=== PATIENT | female | born 1955 | race African-American/Black ===

== ENCOUNTER 2019-07-18 02:28 | Inpatient (IN) | payer SELFPAY ==
[~2019-07-18] VITALS: Ht 172.7 cm; Wt 53.5 kg
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
[2019-07-18 02:56] VITALS: BP 166/31
[2019-07-18] MEDS ORDERED: Enalaprilat 2.5mg/2ml Inj IV ONE (03:15)
[2019-07-18 03:17] LABS: BASOPHILS % (AUTO) 0.8 % (0.0-2.0); EOSINOPHILS % (AUTO) 3.5 % (0.0-3.0); HEMATOCRIT 40.5 % (37.0-47.0); HEMOGLOBIN 13.5 G/DL (12.0-16.0); LYMPHOCYTES % (AUTO) 33.1 % (20.0-45.0); MEAN CORPUSCULAR VOLUME 87 FL (80-99); MONOCYTES % (AUTO) 9.2 % (1.0-10.0); NEUTROPHILS % (AUTO) 53.3 % (45.0-75.0); PLATELET COUNT 386 K/UL (150-450); RED BLOOD COUNT 4.67 M/UL (4.20-5.40); RED CELL DISTRIBUTION WIDTH 12.5 % (11.6-14.8)
[2019-07-18 03:21] LABS: APPEARANCE,URINE SLIGHTLY CLOUDY; BILIRUBIN, URINE NEGATIVE (NEGATIVE); COLOR,URINE PALE YELLOW; GLUCOSE, URINE (UA) NEGATIVE (NEGATIVE); KETONES,URINE NEGATIVE (NEGATIVE); LEUKOCYTE ESTERASE ,URINE 3+ (NEGATIVE); NITRITE,URINE NEGATIVE (NEGATIVE); PH,URINE 8 (4.5-8.0); PROTEIN,URINE NEGATIVE (NEGATIVE); UROBILINOGEN,URINE NORMAL MG/DL (0.0-1.0)
[2019-07-18 03:28] LABS: ANION GAP 9 mmol/L (5-15); BLOOD UREA NITROGEN 28 mg/dL (7-18); CALCIUM 8.7 MG/DL (8.5-10.1); CARBON DIOXIDE 29 MMOL/L (21-32); CHLORIDE 106 MMOL/L (98-107); SODIUM 144 MMOL/L (136-145)
[2019-07-18 03:40] LABS: ALANINE AMINOTRANSFERASE 23 U/L (12-78); ALBUMIN 3.7 G/DL (3.4-5.0); ALKALINE PHOSPHATASE 80 U/L (46-116); ASPARTATE AMINO TRANSFERASE 18 U/L (15-37); BILIRUBIN,TOTAL 0.2 MG/DL (0.2-1.0)
[2019-07-18] MEDS ORDERED: cefTRIAXone 1 GM in NS 55 ML IVPB ONE (04:00)
[2019-07-18] MEDS ORDERED: Morphine Sulfate 2mg/ml Inj(IV/IM USE ONLY) IVP PRN (04:15)
[2019-07-18 04:18] VITALS: BP 155/75
[2019-07-18] MEDS ORDERED: Enalaprilat 2.5mg/2ml Inj IV PRN (07:00)
[2019-07-18] MEDS ORDERED: Miralax 17gm pkt ORAL PRN (07:00)
[2019-07-18] MEDS ORDERED: Nitroglycerin Subl 0.4mg tab SL PRN (07:00)
[2019-07-18] MEDS ORDERED: Albuterol/Ipratropium 3ml neb HHN PRN (07:00)
[2019-07-18] MEDS ORDERED: dilTIAZem HCl 25mg/5ml Inj IV PRN (07:00)
[2019-07-18] MEDS: Aspirin Baby 81mg ORAL SCH (08:15)
[2019-07-18] MEDS: Heparin 5000 units/ml inj SUBQ SCH ×2 (08:15→21:00)
[2019-07-18] MEDS: Morphine Sulfate 2mg/ml Inj(IV/IM USE ONLY) IVP PRN ×4 (08:16→18:08)
--- NOTE | 2019-07-18 10:12 | Diagnostic Imaging Report ---
Indication: Shortness of breath Technique: One view of the chest Comparison: none Findings: Metallic device, nature uncertain, projects over the aortic root. The lungs and pleural spaces are clear. The heart size is upper limits normal. Impression: No acute process
[2019-07-18 12:00] VITALS: BP 142/88
--- NOTE | 2019-07-18 12:32 | Consultation ---
History of Present Illness General Date patient seen: Jul 18, 2019 Chief Complaint: Chest Pain Present Illness HPI 63 year old female with hx Lupus presented to ER with CC of increased chest discomfort. Patient had been given nitroglycerin in the field without significant change in chest discomfort. She had reported increased headache. she has had repair of atrial septal defect as well as heart attack in the past. She reports having several strokes related to lupus. Allergies: Coded Allergies: LATEX (Verified Allergy, Unknown, 07/18/19) Patient History Healthcare decision maker Resuscitation status Full Code Advanced Directive on File Past Medical/Surgical History Past Medical/Surgical History: (1) Lupus Review of Systems All Other Systems: negative except mentioned in HPI Physical Exam General Appearance: WD/WN Lines, tubes and drains: peripheral HEENT: normocephalic, atraumatic Neck: non-tender, normal alignment Respiratory/Chest: chest wall non-tender, lungs clear Breasts: no masses Cardiovascular/Chest: normal rate Abdomen: normal bowel sounds Genitourinary/Rectal: normal genital exam Extremities: normal range of motion Skin Exam: normal pigmentation Last 24 Hour Vital Signs Date Time Temp Pulse Resp B/P (MAP) Pulse Ox O2 Delivery O2 Flow Rate FiO2 07/18/19 11:40 72 07/18/19 09:03 Room Air 07/18/19 09:00 Room Air 07/18/19 08:46 98.2 07/18/19 07:45 73 07/18/19 06:04 98.2 75 19 155/75 100 Room Air 07/18/19 04:18 75 19 155/75 100 Room Air 07/18/19 02:56 98.2 78 18 166/31 99 Room Air 07/18/19 02:56 78 18 Room Air 07/18/19 02:26 98.2 78 18 166/31 (76) 99 Room Air Intake and Output 07/17/19 07/18/19 19:00 07:00 Intake Total 0 ml Balance 0 ml Intake Oral 0 ml Laboratory Tests Test 07/18/19 03:05 07/18/19 11:00 White Blood Count 6.0 K/UL (4.8-10.8) Red Blood Count 4.67 M/UL (4.20-5.40) Hemoglobin 13.5 G/DL (12.0-16.0) Hematocrit 40.5 % (37.0-47.0) Mean Corpuscular Volume 87 FL (80-99) Mean Corpuscular Hemoglobin 28.9 PG (27.0-31.0) Mean Corpuscular Hemoglobin Concent 33.3 G/DL (32.0-36.0) Red Cell Distribution Width 12.5 % (11.6-14.8) Platelet Count 386 K/UL (150-450) Mean Platelet Volume 5.5 FL (6.5-10.1) L Neutrophils (%) (Auto) 53.3 % (45.0-75.0) Lymphocytes (%) (Auto) 33.1 % (20.0-45.0) Monocytes (%) (Auto) 9.2 % (1.0-10.0) Eosinophils (%) (Auto) 3.5 % (0.0-3.0) H Basophils (%) (Auto) 0.8 % (0.0-2.0) Urine Color Pale yellow Urine Appearance Slightly cloudy Urine pH 8 (4.5-8.0) Urine Specific [place] 1.015 (1.005-1.035) Urine Protein Negative (NEGATIVE) Urine Glucose (UA) Negative (NEGATIVE) Urine Ketones Negative (NEGATIVE) Urine Blood 1+ (NEGATIVE) H Urine Nitrite Negative (NEGATIVE) Urine Bilirubin Negative (NEGATIVE) Urine Urobilinogen Normal MG/DL (0.0-1.0) Urine Leukocyte Esterase 3+ (NEGATIVE) H Urine RBC 0-2 /HPF (0 - 2) Urine WBC 40-60 /HPF (0 - 2) H Urine Squamous Epithelial Cells Few /LPF (NONE/OCC) Urine Amorphous Sediment Many /LPF (NONE) H Urine Bacteria Many /HPF (NONE) H Sodium Level 144 MMOL/L (136-145) Potassium Level 4.0 MMOL/L (3.5-5.1) Chloride Level 106 MMOL/L (98-107) Carbon Dioxide Level 29 MMOL/L (21-32) Anion Gap 9 mmol/L (5-15) Blood Urea Nitrogen 28 mg/dL (7-18) H Creatinine 1.0 MG/DL (0.55-1.30) Estimat Glomerular Filtration Rate > 60 mL/min (>60) Glucose Level 97 MG/DL (74-106) Calcium Level 8.7 MG/DL (8.5-10.1) Total Bilirubin 0.2 MG/DL (0.2-1.0) Aspartate Amino Transf (AST/SGOT) 18 U/L (15-37) Alanine Aminotransferase (ALT/SGPT) 23 U/L (12-78) Alkaline Phosphatase 80 U/L (46-116) Troponin I 0.000 ng/mL (0.000-0.056) 0.000 ng/mL (0.000-0.056) Total Protein 7.5 G/DL (6.4-8.2) Albumin 3.7 G/DL (3.4-5.0) Globulin 3.8 g/dL Albumin/Globulin Ratio 1.0 (1.0-2.7) Lipase 387 U/L (73-393) Thyroid Stimulating Hormone (TSH) 0.834 uiU/mL (0.358-3.740) Height (Feet): 5 Height (Inches): 8.00 Weight (Pounds): 118 Medications Current Medications Medications (Trade) Dose Ordered Sig/Macario Route PRN Reason Start Time Stop Time Status Last Admin Dose Admin Acetaminophen (Tylenol) 650 mg Q4H PRN ORAL FEVER 07/18/19 07:00 08/17/19 06:59 Albuterol/ Ipratropium (Albuterol/ Ipratropium) 3 ml Q4H PRN HHN Shortness of Breath 07/18/19 07:00 07/23/19 06:59 Aspirin (ASA) 162 mg DAILY ORAL 07/18/19 09:00 08/17/19 08:59 07/18/19 08:15 Ceftriaxone Sodium 1 gm/ Dextrose 55 ml @ 110 mls/hr Q24H IVPB 07/19/19 04:00 07/26/19 03:59 Diltiazem HCl (Cardizem) 10 mg Q1H PRN IV heart rate more than 120, 07/18/19 07:00 08/17/19 06:59 Enalaprilat (Vasotec) 2.5 mg Q6H PRN IV sbp more than 160 07/18/19 07:00 08/17/19 06:59 Heparin Sodium (Porcine) (Heparin 5000 units/ml) 5,000 units EVERY 12 HOURS SUBQ 07/18/19 09:00 08/17/19 08:59 Morphine Sulfate (Morphine Sulfate) 2 mg Q4H PRN IVP severe Pain (Pain Scale 7-10) 07/18/19 07:00 07/25/19 06:59 07/18/19 08:16 Nitroglycerin (Ntg) 0.4 mg Q5M PRN SL Prn Chest Pain 07/18/19 07:00 08/17/19 06:59 Ondansetron HCl (Zofran) 4 mg Q6H PRN IVP Nausea & Vomiting 07/18/19 07:00 08/17/19 06:59 Polyethylene Glycol (Miralax) 17 gm DAILYPRN PRN ORAL Constipation 07/18/19 07:00 08/17/19 06:59 Temazepam (Restoril) 15 mg HSPRN PRN ORAL Insomnia 07/18/19 07:00 07/25/19 06:59 Assessment/Plan Problem List: (1) Chest pain ICD Codes: R07.9 - Chest pain, unspecified SNOMED: 02289204 (2) Urinary tract infection ICD Codes: N39.0 - Urinary tract infection, site not specified SNOMED: 29689596 (3) Lupus ICD Codes: M32.9 - Systemic lupus erythematosus, unspecified SNOMED: 403070634 Assessment/Plan: serial ekg, troponin echo IV abx cardiology to see EKG showing septal infarct, age undetermined Nathaly Cunningham MD Jul 18, 2019 12:32
--- NOTE | 2019-07-18 18:01 | History and Physical Report ---
DATE OF ADMISSION: 07/18/2019 APPROXIMATE TIME: 2 p.m. CONSULTANTS: 1. Nathaly Cunningham M.D. 2. Enrique Anderson M.D. CHIEF COMPLAINT: Chest pain and dizziness. BRIEF HISTORY: This is a 63-year-old female, who presents to [place] ER with above-mentioned diagnosis, chest pain, dull substernal, no radiation. The patient was little dizzy, but no loss of consciousness, came to [place], diagnosed with the above, admitted to telemetry for further care. Currently, calm, in bed. No complaint. Slight chest pain. Slight short of breath. No nausea, vomiting, or diarrhea. PAST MEDICAL HISTORY: Hypertension, lupus, [place] x4, asthma. PAST SURGICAL HISTORY: Unknown. ALLERGIES: Latex. MEDICATIONS: We will obtain list shortly. SOCIAL HISTORY: No smoking. No alcohol. No intravenous drug abuse. FAMILY HISTORY: Noncontributory. PHYSICAL EXAMINATION: GENERAL: Calm in bed, oriented x3, in no acute distress. VITAL SIGNS: Temperature 98 degrees, pulse 72, respirations 18, blood pressure 142/88. CARDIOVASCULAR: No murmur. LUNGS: Distant and clear. ABDOMEN: Bowel sounds positive. Nontender. Nondistended. EXTREMITIES: No cyanosis or edema. NEUROLOGIC: The patient moves all extremities, slightly weak. LABORATORY DATA: Labs at this time are pending. ASSESSMENT: 1. Chest pain. 2. Hypertension. 3. History of lupus. 4. MO. 5. Asthma. PLAN: 1. O2, pulmonary treatment. 2. Pain control. 3. Blood pressure control. 4. Dietary followup. 5. Cardiology followup. 6. We will continue to follow. 7. CBC, BMP in the morning. Víctor Regalado D.O. DR: HI JOB#: [id number] CC:
[2019-07-18 20:00] VITALS: BP 167/77
--- NOTE | 2019-07-18 20:06 | Cardiology Progress Note ---
Assessment/Plan Assessment/Plan [id number] doubt ischemic pain ekg neg trop neg she claims to have had 4 heart attack \ prelim echo neg i am unable ot access rizwan echo to reviwed stres echo in am prior to dc Objective Last 24 Hour Vital Signs Date Time Temp Pulse Resp B/P (MAP) Pulse Ox O2 Delivery O2 Flow Rate FiO2 07/18/19 18:38 98.2 07/18/19 12:00 98.2 72 18 142/88 (106) 97 07/18/19 11:40 72 07/18/19 09:03 Room Air 07/18/19 09:00 Room Air 07/18/19 07:45 73 07/18/19 06:04 98.2 75 19 155/75 100 Room Air 07/18/19 04:18 75 19 155/75 100 Room Air 07/18/19 02:56 98.2 78 18 166/31 99 Room Air 07/18/19 02:56 78 18 Room Air 07/18/19 02:26 98.2 78 18 166/31 (76) 99 Room Air Intake and Output 07/17/19 07/18/19 19:00 07:00 Intake Total 0 ml Balance 0 ml Intake Oral 0 ml Laboratory Tests Test 07/18/19 03:05 07/18/19 11:00 07/18/19 16:40 White Blood Count 6.0 K/UL (4.8-10.8) Red Blood Count 4.67 M/UL (4.20-5.40) Hemoglobin 13.5 G/DL (12.0-16.0) Hematocrit 40.5 % (37.0-47.0) Mean Corpuscular Volume 87 FL (80-99) Mean Corpuscular Hemoglobin 28.9 PG (27.0-31.0) Mean Corpuscular Hemoglobin Concent 33.3 G/DL (32.0-36.0) Red Cell Distribution Width 12.5 % (11.6-14.8) Platelet Count 386 K/UL (150-450) Mean Platelet Volume 5.5 FL (6.5-10.1) L Neutrophils (%) (Auto) 53.3 % (45.0-75.0) Lymphocytes (%) (Auto) 33.1 % (20.0-45.0) Monocytes (%) (Auto) 9.2 % (1.0-10.0) Eosinophils (%) (Auto) 3.5 % (0.0-3.0) H Basophils (%) (Auto) 0.8 % (0.0-2.0) Urine Color Pale yellow Urine Appearance Slightly cloudy Urine pH 8 (4.5-8.0) Urine Specific [place] 1.015 (1.005-1.035) Urine Protein Negative (NEGATIVE) Urine Glucose (UA) Negative (NEGATIVE) Urine Ketones Negative (NEGATIVE) Urine Blood 1+ (NEGATIVE) H Urine Nitrite Negative (NEGATIVE) Urine Bilirubin Negative (NEGATIVE) Urine Urobilinogen Normal MG/DL (0.0-1.0) Urine Leukocyte Esterase 3+ (NEGATIVE) H Urine RBC 0-2 /HPF (0 - 2) Urine WBC 40-60 /HPF (0 - 2) H Urine Squamous Epithelial Cells Few /LPF (NONE/OCC) Urine Amorphous Sediment Many /LPF (NONE) H Urine Bacteria Many /HPF (NONE) H Sodium Level 144 MMOL/L (136-145) Potassium Level 4.0 MMOL/L (3.5-5.1) Chloride Level 106 MMOL/L (98-107) Carbon Dioxide Level 29 MMOL/L (21-32) Anion Gap 9 mmol/L (5-15) Blood Urea Nitrogen 28 mg/dL (7-18) H Creatinine 1.0 MG/DL (0.55-1.30) Estimat Glomerular Filtration Rate > 60 mL/min (>60) Glucose Level 97 MG/DL (74-106) Calcium Level 8.7 MG/DL (8.5-10.1) Total Bilirubin 0.2 MG/DL (0.2-1.0) Aspartate Amino Transf (AST/SGOT) 18 U/L (15-37) Alanine Aminotransferase (ALT/SGPT) 23 U/L (12-78) Alkaline Phosphatase 80 U/L (46-116) Troponin I 0.000 ng/mL (0.000-0.056) 0.000 ng/mL (0.000-0.056) Total Protein 7.5 G/DL (6.4-8.2) Albumin 3.7 G/DL (3.4-5.0) Globulin 3.8 g/dL Albumin/Globulin Ratio 1.0 (1.0-2.7) Lipase 387 U/L (73-393) Thyroid Stimulating Hormone (TSH) 0.834 uiU/mL (0.358-3.740) Rheumatoid Factor Screen Pending Total Complement (CH50) Pending Enrique Anderson MD Jul 18, 2019 20:06
[2019-07-19] VITALS: BP 146/90
[2019-07-19] MEDS ORDERED: Sertraline 50mg tab ORAL SCH
[2019-07-19] MEDS ORDERED: Lisinopril 20mg tab ORAL SCH
[2019-07-19 04:00] VITALS: BP 144/81
[2019-07-19] MEDS ORDERED: cefTRIAXone 1gm/D5W 55ml IVPB SCH ×2 (04:00)
[2019-07-19] MEDS: Morphine Sulfate 2mg/ml Inj(IV/IM USE ONLY) IVP PRN (06:01)
--- NOTE | 2019-07-19 06:30 | Consultation ---
DATE OF CONSULTATION: 07/18/2019 CARDIOLOGY CONSULTATION CONSULTING PHYSICIAN: Enrique Anderson M.D. REFERRING PHYSICIAN: Víctor Regalado D.O. REASON FOR REFERRAL: Chest pain and shortness of breath. HISTORY OF PRESENT ILLNESS: This is a middle-aged female who has a history of shortness of breath for approximately 10 years as well as chest pain. She is in a facility that she had to get away from have been consulted and she has been having some shortness of breath and she is mentally distressed as she gets shortness of breath getting worse and chest pain getting worse. She has no PND. She uses two pillows. She does wake up at night because of shortness of breath and sits up breathing and goes back to bed. No dizziness or lightheadedness on standing. No heart pounding or palpitations. PAST MEDICAL HISTORY: She indicates she has had 4 TIAs and 4 heart attacks and Amplatzer ASD closure device that was implanted in [place]. She is prediabetic. She never had a cancer and no hepatitis or tuberculosis. She does have asthma. No ulcers. She has . No hepatitis or tuberculosis. She has end-stage kidney dysfunction. No HIV or AIDS. The patient has a history of lupus arthritis as well. SOCIAL HISTORY: She used to smoke, quit that in 1983. Denies any drugs. She used to drink some, not heavily. REVIEW OF SYSTEMS: GASTROINTESTINAL: She is positive for constipation. GENITOURINARY: Negative. PULMONARY: Negative. CONSTITUTIONAL: Negative. NEUROLOGIC: Numbness and tingling sensation in her feet. PHYSICAL EXAMINATION: GENERAL: Shows her to be a thin middle-aged female, in no respiratory distress. NECK: Supple. No jugular distention. LUNGS: Clear to auscultation and percussion. CARDIAC: S1 is normal. S2 is normal. Regular rate and rhythm. There is a systolic ejection murmur. No heaves or thrills noted. ABDOMEN: Soft and nontender. Positive bowel sounds. EXTREMITIES: There is no clubbing, cyanosis, or edema. NEUROLOGICAL: She is awake, alert, and responsive. LABORATORY AND DIAGNOSTIC DATA: White count of 6, hemoglobin 13.5, and platelet count of 386,000. Sodium is 144, potassium 4.0, chloride 103, bicarb 29, BUN of 28, creatinine 1.0, and glucose of 97. Cardiac enzymes, troponins are negative. Albumin of 3.7. TSH is 0.837. Lipase of 387. Urinalysis is 40 to 60 wbc's. Her chest x-ray shows basically a center medical specialist, nature unknown. Lungs and pleural spaces are clear. The heart size is in the upper limit of normal. No acute processes. Currently, echocardiogram shows ejection fraction 60% to 65%. No valvular dysfunction of any kind. IVC normal size. Telemetry sinus. EKG is normal sinus rhythm, normal QRS axis, and no ST or T-wave abnormalities. ASSESSMENT: 1. Atypical chest pain. No evidence of myonecrosis. 2. History of ASD or PFO closure device in. 3. History of chronic dyspnea. 4. Reported history of lupus. PLAN: Dr. Regalado, this patient was seen in cardiac consultation. The patient has no signs or symptoms of coronary syndrome nor any evidence of congestive heart failure on examination. Lungs appear to be relatively clear. She has had shortness of breath for a long time although she appears to indicate that her symptoms get worse in terms of mental stress. She has had an echocardiogram reported as mentioned above. Nothing about atrial enlargement. I am not able to pull down the studies to review myself. The electrocardiogram is unremarkable. That will be repeated. In light of lack of maybe a stress test to be performed tomorrow. Her shortness of breath seems to get worse with times of mental stress. She is usually very active walking around without any chest pain. Therefore, this pain is considered atypical and unlikely to be of a recurrent ischemic event. She indicates that she has been told she had four heart attacks, but appears not to have had any kind of procedure performed for those as I understand it. So the history of information provided is rather incomplete, and I doubt that this is ischemic in origin. I would perform a treadmill stress test in the morning and hopefully discharge her if that is negative. Enrique Anderson M.D. DR: AHMET JOB#: [id number] CC:
[2019-07-19 07:29] LABS: INR 0.9 (0.9-1.1)
[2019-07-19 07:46] LABS: BASOPHILS % (AUTO) 0.6 % (0.0-2.0); EOSINOPHILS % (AUTO) 4.4 % (0.0-3.0); HEMATOCRIT 40.1 % (37.0-47.0); HEMOGLOBIN 13.4 G/DL (12.0-16.0); LYMPHOCYTES % (AUTO) 49.4 % (20.0-45.0); MEAN CORPUSCULAR VOLUME 87 FL (80-99); MONOCYTES % (AUTO) 7.4 % (1.0-10.0); NEUTROPHILS % (AUTO) 38.3 % (45.0-75.0); PLATELET COUNT 388 K/UL (150-450); RED BLOOD COUNT 4.63 M/UL (4.20-5.40); RED CELL DISTRIBUTION WIDTH 12.8 % (11.6-14.8); WHITE BLOOD COUNT 5.4 K/UL (4.8-10.8)
[2019-07-19 08:00] VITALS: BP 160/73
[2019-07-19 08:04] LABS: PHOSPHORUS 4.7 MG/DL (2.5-4.9)
[2019-07-19 08:18] LABS: ALANINE AMINOTRANSFERASE 22 U/L (12-78); ALBUMIN 3.7 G/DL (3.4-5.0); ALKALINE PHOSPHATASE 74 U/L (46-116); ANION GAP 10 mmol/L (5-15); ASPARTATE AMINO TRANSFERASE 20 U/L (15-37); BILIRUBIN,TOTAL 0.2 MG/DL (0.2-1.0); BLOOD UREA NITROGEN 19 mg/dL (7-18); CALCIUM 8.7 MG/DL (8.5-10.1); CARBON DIOXIDE 26 MMOL/L (21-32); CHLORIDE 107 MMOL/L (98-107); CHOLESTEROL 242 MG/DL (< 200); CREATININE 0.8 MG/DL (0.55-1.30); HDL CHOLESTEROL 67 MG/DL (40-60); POTASSIUM 4.1 MMOL/L (3.5-5.1); SODIUM 143 MMOL/L (136-145); TRIGLYCERIDES 100 MG/DL (30-150)
--- NOTE | 2019-07-19 08:41 | General Progress Note ---
Assessment/Plan Problem List: (1) HTN (hypertension) ICD Codes: I10 - Essential (primary) hypertension SNOMED: 23309511 (2) Asthma ICD Codes: J45.909 - Unspecified asthma, uncomplicated SNOMED: 997811757 (3) Urinary tract infection ICD Codes: N39.0 - Urinary tract infection, site not specified SNOMED: 62311004 (4) Chest pain ICD Codes: R07.9 - Chest pain, unspecified SNOMED: 91486898 (5) Lupus ICD Codes: M32.9 - Systemic lupus erythematosus, unspecified SNOMED: 659175930 Status: stable, progressing Assessment/Plan: bp pain control cardio f/u cbc bmp am Subjective Constitutional: Reports: weakness Allergies: Coded Allergies: LATEX (Verified Allergy, Unknown, 07/18/19) All Systems: reviewed and negative except above Subjective calm in bed Objective Last 24 Hour Vital Signs Date Time Temp Pulse Resp B/P (MAP) Pulse Ox O2 Delivery O2 Flow Rate FiO2 07/19/19 04:00 96.6 69 19 144/81 (102) 100 07/19/19 04:00 75 07/19/19 00:00 72 07/19/19 00:00 97.7 67 18 146/90 (108) 99 07/18/19 21:00 Room Air 07/18/19 20:00 97.7 72 20 167/77 (107) 98 07/18/19 20:00 75 07/18/19 18:38 98.2 07/18/19 12:00 98.2 72 18 142/88 (106) 97 07/18/19 11:40 72 07/18/19 09:03 Room Air 07/18/19 09:00 Room Air Intake and Output 07/18/19 07/19/19 19:00 07:00 # Voids 2 3 Laboratory Tests 07/18/19 11:00: Troponin I 0.000 07/18/19 16:40: Rheumatoid Factor Screen <10.0, Total Complement (CH50) [Pending] 07/19/19 05:48: Troponin I 0.001, White Blood Count 5.4, Red Blood Count 4.63, Hemoglobin 13.4, Hematocrit 40.1, Mean Corpuscular Volume 87, Mean Corpuscular Hemoglobin 29.0, Mean Corpuscular Hemoglobin Concent 33.5, Red Cell Distribution Width 12.8, Platelet Count 388, Mean Platelet Volume 5.4L, Neutrophils (%) (Auto) 38.3L, Lymphocytes (%) (Auto) 49.4H, Monocytes (%) (Auto) 7.4, Eosinophils (%) (Auto) 4.4H, Basophils (%) (Auto) 0.6, Erythrocyte Sedimentation Rate [Pending], Prothrombin Time 10.0, Prothromb Time International Ratio 0.9, Activated Partial Thromboplast Time 25, Sodium Level 143, Potassium Level 4.1, Chloride Level 107, Carbon Dioxide Level 26, Anion Gap 10, Blood Urea Nitrogen 19H, Creatinine 0.8, Estimat Glomerular Filtration Rate > 60, Glucose Level 82, Calcium Level 8.7, Phosphorus Level 4.7, Magnesium Level 2.1, Total Bilirubin 0.2, Aspartate Amino Transf (AST/SGOT) 20, Alanine Aminotransferase (ALT/SGPT) 22, Alkaline Phosphatase 74, C-Reactive Protein, Quantitative < 0.4, Total Protein 7.5, Albumin 3.7, Globulin 3.8, Albumin/Globulin Ratio 1.0, Triglycerides Level 100, Cholesterol Level 242H, LDL Cholesterol 145H, HDL Cholesterol 67H, Cholesterol/HDL Ratio 3.6, Thyroid Stimulating Hormone (TSH) 0.663 Height (Feet): 5 Height (Inches): 8.00 Weight (Pounds): 118 General Appearance: lethargic EENT: normal ENT inspection Neck: normal alignment Cardiovascular: normal peripheral pulses, normal rate, regular rhythm Respiratory/Chest: chest wall non-tender, lungs clear, normal breath sounds Abdomen: normal bowel sounds, non tender, soft Extremities: normal inspection Edema: no edema noted Arm (L), no edema noted Arm (R), no edema noted Leg (L), no edema noted Leg (R), no edema noted Pedal (L), no edema noted Pedal (R), no edema noted Generalized Neurologic: motor weakness Skin: normal pigmentation, warm/dry Víctor Regalado DO Jul 19, 2019 08:41
[2019-07-19] MEDS: Heparin 5000 units/ml inj SUBQ SCH (09:00)
[2019-07-19] MEDS: Aspirin Baby 81mg ORAL SCH (09:10)
[2019-07-19] MEDS ORDERED: LISINOPRIL20 MG ORAL (10:46)
[2019-07-19] MEDS ORDERED: ZOLOFT25 MG ORAL (10:46)
--- NOTE | 2019-07-19 10:48 | Pulmonology Progress Note ---
Assessment/Plan Problems: (1) Chest pain (2) Urinary tract infection (3) Lupus Assessment/Plan getting better no new complains needs outpatient f/u dc meds given including Zoloft and lisinopril Subjective ROS Limited/Unobtainable: No Constitutional: Reports: no symptoms HEENT: Repors: no symptoms Respiratory: Reports: no symptoms Allergies: Coded Allergies: LATEX (Verified Allergy, Unknown, 07/18/19) Objective Last 24 Hour Vital Signs Date Time Temp Pulse Resp B/P (MAP) Pulse Ox O2 Delivery O2 Flow Rate FiO2 07/19/19 09:22 58 18 100 Nasal Cannula 1.0 24 07/19/19 08:00 96.3 76 20 160/73 (102) 98 07/19/19 04:00 96.6 69 19 144/81 (102) 100 07/19/19 04:00 75 07/19/19 00:00 72 07/19/19 00:00 97.7 67 18 146/90 (108) 99 07/18/19 21:00 Room Air 07/18/19 20:00 97.7 72 20 167/77 (107) 98 07/18/19 20:00 75 07/18/19 18:38 98.2 07/18/19 12:00 98.2 72 18 142/88 (106) 97 07/18/19 11:40 72 Intake and Output 07/18/19 07/19/19 19:00 07:00 # Voids 2 3 General Appearance: WD/WN HEENT: normocephalic, atraumatic Respiratory/Chest: chest wall non-tender, lungs clear Breasts: no masses Cardiovascular: normal peripheral pulses, normal rate Abdomen: normal bowel sounds, soft, non tender Genitourinary: normal external genitalia Extremities: no cyanosis Neurologic/Psychiatric: butter printer II-XII grossly normal Microbiology Date/Time Source Procedure Growth Status 07/18/19 03:05 Urine,Clean Catch Urine Culture - Preliminary Mixed Gram Positive Organism Resulted Laboratory Tests 07/18/19 11:00: Troponin I 0.000 07/18/19 16:40: Rheumatoid Factor Screen <10.0, Total Complement (CH50) [Pending] 07/19/19 05:48: Troponin I 0.001, White Blood Count 5.4, Red Blood Count 4.63, Hemoglobin 13.4, Hematocrit 40.1, Mean Corpuscular Volume 87, Mean Corpuscular Hemoglobin 29.0, Mean Corpuscular Hemoglobin Concent 33.5, Red Cell Distribution Width 12.8, Platelet Count 388, Mean Platelet Volume 5.4L, Neutrophils (%) (Auto) 38.3L, Lymphocytes (%) (Auto) 49.4H, Monocytes (%) (Auto) 7.4, Eosinophils (%) (Auto) 4.4H, Basophils (%) (Auto) 0.6, Erythrocyte Sedimentation Rate 9, Prothrombin Time 10.0, Prothromb Time International Ratio 0.9, Activated Partial Thromboplast Time 25, Sodium Level 143, Potassium Level 4.1, Chloride Level 107 , Carbon Dioxide Level 26, Anion Gap 10, Blood Urea Nitrogen 19H, Creatinine 0.8 , Estimat Glomerular Filtration Rate > 60, Glucose Level 82, Calcium Level 8.7, Phosphorus Level 4.7, Magnesium Level 2.1, Total Bilirubin 0.2, Aspartate Amino Transf (AST/SGOT) 20, Alanine Aminotransferase (ALT/SGPT) 22, Alkaline Phosphatase 74, C-Reactive Protein, Quantitative < 0.4, Total Protein 7.5, Albumin 3.7, Globulin 3.8, Albumin/Globulin Ratio 1.0, Triglycerides Level 100, Cholesterol Level 242H, LDL Cholesterol 145H, HDL Cholesterol 67H, Cholesterol/ HDL Ratio 3.6, Thyroid Stimulating Hormone (TSH) 0.663 Current Medications Medications (Trade) Dose Ordered Sig/Macario Route PRN Reason Start Time Stop Time Status Last Admin Dose Admin Acetaminophen (Tylenol) 650 mg Q4H PRN ORAL FEVER 07/18/19 07:00 08/17/19 06:59 Albuterol/ Ipratropium (Albuterol/ Ipratropium) 3 ml Q4H PRN HHN Shortness of Breath 07/18/19 07:00 07/23/19 06:59 Aspirin (ASA) 162 mg DAILY ORAL 07/18/19 09:00 08/17/19 08:59 07/19/19 09:10 Ceftriaxone Sodium 1 gm/ Dextrose 55 ml @ 110 mls/hr Q24H IVPB 07/19/19 04:00 07/26/19 03:59 07/19/19 04:47 Diltiazem HCl (Cardizem) 10 mg Q1H PRN IV heart rate more than 120, 07/18/19 07:00 08/17/19 06:59 Enalaprilat (Vasotec) 2.5 mg Q6H PRN IV sbp more than 160 07/18/19 07:00 08/17/19 06:59 Heparin Sodium (Porcine) (Heparin 5000 units/ml) 5,000 units EVERY 12 HOURS SUBQ 07/18/19 09:00 08/17/19 08:59 Morphine Sulfate (Morphine Sulfate) 2 mg Q4H PRN IVP severe Pain (Pain Scale 7-10) 07/18/19 07:00 07/25/19 06:59 07/19/19 06:01 Nitroglycerin (Ntg) 0.4 mg Q5M PRN SL Prn Chest Pain 07/18/19 07:00 08/17/19 06:59 Ondansetron HCl (Zofran) 4 mg Q6H PRN IVP Nausea & Vomiting 07/18/19 07:00 08/17/19 06:59 Polyethylene Glycol (Miralax) 17 gm DAILYPRN PRN ORAL Constipation 07/18/19 07:00 08/17/19 06:59 Temazepam (Restoril) 15 mg HSPRN PRN ORAL Insomnia 07/18/19 07:00 07/25/19 06:59 Nathaly Cunningham MD Jul 19, 2019 10:48
[2019-07-19 12:00] VITALS: BP 152/73
--- NOTE | 2019-07-20 20:56 | Discharge Summary ---
Discharge Summary Discharge Summary _ DATE OF ADMISSION: 07/18/2019 DATE OF DISCHARGE: 07/19/2019 DISCHARGED BY: Dr. Víctor Regalado CONSULTANTS: Dr. Nathaly Anderson BRIEF HOSPITAL COURSE: The patient is a 63-year-old female, who presented to ED for complaints of chest pain and dizziness. Chest pain was described to be substernal, with no radiation. Patient was a little dizzy, but no loss of consciousness. She has medical history of hypertension, lupus, [place] x4 and asthma. Patient had Amplatzer ASD closure device that was implanted in [place]. Upon evaluation at ED, vital signs were stable. Troponin was negative. Urinalysis showed 40-60 urine WBC, 0-2 urine RBC, 2+ leukocyte esterase, negative nitrite. EKG showed normal sinus rhythm at a rate of [address] or T wave changes. EKG showed likely lead placement abnormalities. Repeat EKG showed normal sinus rhythm. TSH was normal. Chest x-ray was unremarkable. Patient was admitted for evaluation of chest pain. Coding Clerks Supervisor and garden tractor mechanic were consulted. Patient did not have any signs or symptoms of coronary syndrome nor any evidence of congestive heart failure on examination. Echocardiogram done showed ejection fraction of 60 to 65%. No valvular dysfunction. IVC normal size. She was given nebulizer treatment. She was started empirically on ceftriaxone. Cardiac enzymes were negative x3. EKG unremarkable. She was sinus on telemetry. She was cleared for discharge. She was given DC meds including lisinopril and Zoloft. She was discharged to a alf, but refused to have transportation arranged. FINAL DIAGNOSES: Atypical chest pain with no evidence of myonecrosis History of ASD or PFO closure device History of chronic dyspnea Reported history of lupus DISPOSITION: The treating physician has assessed that the patient is medically stable for discharge to an outstretched disposition. DISCHARGE MEDICATIONS: Refer to Discharge Medication List. I have been assigned to complete a discharge summary on this account, I was not involved with the patient's management.--MARIANNE Alcocer Jacqueline Robles NP Jul 20, 2019 20:55
--- NOTE | 2019-07-24 19:57 | Coder Physician Query ---
Clarification is required for compliance, coding accuracy, and to reflect severity of illness for this patient Dear Dr. Anderson Date: 07/24/2019 Assistant Chief Of Police/CDS' Name Lana Starr SID BRIEF HOSPITAL COURSE: The patient is a 63-year-old female, who presented to ED for complaints of chest pain and dizziness. Chest pain was described to be substernal, with no radiation. Patient was a little dizzy, but no loss of consciousness. She has medical history of hypertension, lupus, [place] x4 and asthma. Patient had Amplatzer ASD closure device that was implanted in [place]. Echocardiogram shows ejection fraction 60% to 65%. No valvular dysfunction of any kind. IVC normal size. Telemetry sinus. EKG is normal sinus rhythm, normal QRS axis, and no ST or T-wave abnormalities. The patient has no signs or symptoms of coronary syndrome nor any evidence of congestive heart failure on examination. ASSESSMENT: 1. Atypical chest pain. No evidence of myonecrosis. 2. History of ASD or PFO closure device in. Please document the suspected etiology of Chest Pain: [] Acute Coronary Syndrome [] Pericarditis [] Anxiety [] Cancer [] Pneumonia [] Costochondritis [] Pneumothorax [] GERD/Esophagitis [] Pulmonary embolism [] Other: [] Unable to determine Enrique Anderson M.D. Date Please also document in your Progress Notes and/or Discharge Summary and indicate if the condition was present on admission. RUTHY
== END 2019-07-19 14:19 | disposition home or self-care (01) | DRG 313 ==
LOC: EDBD 02:28 → EMR 03:12 → UNDOADMIN 03:37 → 2E 03:37 → 2W 03:37 → EDBEDREQ 04:00
DX: R07.89 Other chest pain (principal); N39.0 Urinary tract infection, site not specified; M32.9 Systemic lupus erythematosus, unspecified; I25.2 Old myocardial infarction; Z87.74 Personal history of (corrected) congenital malformations of heart and circulatory system; I10 Essential (primary) hypertension; J45.909 Unspecified asthma, uncomplicated; Z91.040 Latex allergy status; Z59.0 Homelessness; Z86.73 Personal history of transient ischemic attack (TIA), and cerebral infarction without residual deficits
CPT/HCPCS: 36415; 71045; 80053; 80061; 81001; 83690; 83735; 84100; 84443; 84484; 85025; 85610; 85651; 85730; 86140; 86162; 86431; 87081; 87086; 93005; 93306; 94664; 96365; 99285